=== PATIENT | female | born 1990 | race Caucasian/White ===

== ENCOUNTER → 2016-09-08 | Outpatient (CLI) | payer BC, OTHER ==
[~2016-09-08] MED LIST: ALBU1AER9 INH; FLUT110A INH; ONDA4TAB10 SL; PREN1TAB29 PO; PROM5SUP2 PR
[2016-09-08 13:06] LABS: BASO % 0.6 %; BASO ABS # 0.04 K/uL (0-0.2); COMPLETE YES; EOS % 5.9 %; HEMATOCRIT 36.7 % (37-47); LYMPH % 45.1 %; LYMPH ABS # 2.84 K/uL (1.2-3.4); MEAN CELL VOLUME 81.4 fL (80-100); MEAN CORPUSCULAR HEMOGLOBIN 27.7 pg (25-34); MEAN CORPUSCULAR HGB CONC 34.1 g/dl (32-36); MEAN PLATELET VOLUME 11.2 fL (7.4-10.4); MONO % 8.7 %; NEUT % 39.7 %; PLATELET COUNT 180 K/uL (130-400); RED BLOOD COUNT 4.51 M/uL (4.2-5.4)
[2016-09-08 14:05] LABS: ALT/SGPT 14 U/L (12-78); BLOOD UREA NITROGEN 21 mg/dl (7-18); BUN/CREATININE RATIO 29.7 (10-20); CALCIUM 8.5 mg/dl (8.5-10.1); CARBON DIOXIDE 23 mmol/L (21-32); CHLORIDE 109 mmol/L (98-107); CHOLESTEROL 114 mg/dl (0-200); CREATININE 0.71 mg/dl (0.60-1.20); GLUCOSE 68 mg/dl (70-99); POTASSIUM 3.8 mmol/L (3.5-5.1); SODIUM 141 mmol/L (136-145)
[2016-09-08 14:14] LABS: ALB/GLOB RATIO 1.3 (0.9-2); ALKALINE PHOSPHATASE 64 U/L (45-117); AST/SGOT 10 U/L (15-37); CHOLESTEROL/HDL RATIO 2.6; HDL CHOLESTEROL 44 mg/dl; LDL CHOLESTEROL CALCULATED 60 mg/dl; TRIGLYCERIDES 50 mg/dl (0-150); VERY LOW DENSITY LIPOPROT CALC 10 mg/dl
[2016-09-12 14:11] LABS: GLIADIN DEAMIDATED IgA AB 6 UNITS (<20); GLIADIN DEAMIDATED IgG AB 7 UNITS (<20); RETICULIN IgA AB Negative (Negative)
== END | disposition home or self-care (01) ==
LOC: C.LABMFLN 11:29
PROVIDERS: ATTEND Family Medicine
DX: R63.4 Abnormal weight loss (principal); R10.9 Unspecified abdominal pain